=== PATIENT | female | born 1965 | race Caucasian/White ===

== ENCOUNTER → 2021-09-19 | Outpatient (CLI) | payer BC, OTHER ==
[~2021-09-19] MED LIST: EZET10TA21 PO
== END ==
LOC: M LABSMTC 10:16
PROVIDERS: ATTEND Anesthesiology
DX: Z01.812 Encounter for preprocedural laboratory examination (principal); Z20.822 Contact with and (suspected) exposure to COVID-19

== ENCOUNTER 2021-09-24 10:32 | Day surgery (SDC) | payer BC, OTHER ==
[~2021-09-24] VITALS: Ht 157.5 cm; Wt 69.9 kg
[~2021-09-24 10:32] MED LIST changes: +NS 1,000 ML IV ONE
--- OUTSIDE RECORDS SUMMARY | 2021-09-24 10:41 | CCD ---
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 eviewed Alzheimer's disease, ovarian cancer 11/18/2013 Sister 1 health status was reviewed HTN 11/18/2013 Review of Systems Review of Systems not supported for this document typeNo Review of Systems Recorded Mental Status Mental Status not supported for this document typeNo Mental Status Recorded Functional Status Functional Status not supported for this document typeNo Functional Status Recorded Physical Exam Physical Exam not supported for this document typeNo Physical Exam Recorded Immunizations Includes: Immunizations in patient's chart Vaccine Dose # Date Site Reaction(s) Status Source Influenza, seasonal, injectable 1 09/12/2014 Left Arm Complete (Administered) [facility] Influenza, seasonal, injectable 2 09/11/2016 Right Deltoid Complete (Administered) [facility] Influenza, seasonal, injectable 3 09/02/2018 Left Deltoid Complete (Administered) [facility] Influenza, seasonal, injectable 4 09/13/2019 Right Deltoid Complete (Administered) [facility] Influenza, seasonal, injectable 5 09/13/2020 Left Deltoid Complete (Administered) [facility] Influenza, seasonal, injectable 6 09/03/2021 Right Deltoid Complete (Administered) [facility] [place] COVID 1 03/01/2021 Complete (Reported) Pat ient Tdap (> 7 yrs) 1 02/26/2013 Complete (Reported) Pa tient Allergies Includes: Active, inactive, and resolved Allergies Substance Type Reaction Onset Date - Time Resolved Date - Ti ak Status surgical jacinto Allergy rash 11/18/2013 - 12:00AM Active Flonase Allergy ocular watering, rhinorrhea worsened 01/26/2014 - 12:00AM Active Encounters Includes: Encounters from 09/07/2020 through 09/07/2021 Encounter Provider Location Date Check-In Time Check-Out Time D iagnosis Flu Shot Adult Abdirahman Gómez MD [facility] kenna [facility] 09/03/2021 1:53PM 2:08PM [Patient Encounter] [facility] 08/02/202107/25 9:31AM 07/25/2021 11:59PM ANNUAL PE-followup exam/30 Emerita Salgado zaynab [facility] dictito [place] [facility] 07/25/2021 12:46PM 1:41PM Pure Hypercholes terolemia, Obesity, Routine History and Physical Adult (18 - 64 Yrs), Fatty Liver - Nonalcoholic, Gerd Flu Shot Adult Abdirahman Gómez MD [facility] kenna [facility] 09/13/2020 10:59AM 11:09AM Insurance Includes: Active Insurance Policies Plan Name Member ID Group # Subscriber Relationship Effective Da seema 1 - [place] [employer] [id number] Luke Tanner Jose Advance Directives Includes: Current Advance DirectivesNo Advance Directives Recorded Health Concerns Includes: Active Health ConcernsNo Active Health Concerns Recorded Goals Includes: Active GoalsNo Active Goals Recorded Interventions Includes: Interventions for active GoalsNo Interventions Recorded Evaluations & Outcomes Includes: Evaluations & Outcomes for active GoalsNo Outcomes Recorded
--- OUTSIDE RECORDS SUMMARY | 2021-09-24 10:42 | CCD ---
Author Author [facility] Address Unknown Phone Unavailable Care Team Providers Care It Engineer Name Role Phone MUHA, M DREW BAKERY MACHINE MECHANIC Unavailable Unavailable MUHA, M DREW BAKERY MACHINE MECHANIC Unavailable Unavailable MUHA, M DREW BAKERY MACHINE MECHANIC Unavailable Unavailable MUHA, M DREW BAKERY MACHINE MECHANIC Unavailable Unavailable MUHA, M DREW BAKERY MACHINE MECHANIC Unavailable Unavailable MUHA, M DREW BAKERY MACHINE MECHANIC Unavailable Unavailable MUHA, M DREW BAKERY MACHINE MECHANIC Unavailable Unavailable MUHA, M DREW BAKERY MACHINE MECHANIC Unavailable Unavailable MUHA, M DREW BAKERY MACHINE MECHANIC Unavailable Unavailable MUHA, M DREW BAKERY MACHINE MECHANIC Unavailable Unavailable MUHA, M DREW BAKERY MACHINE MECHANIC Unavailable Unavailable MUHA, M DREW BAKERY MACHINE MECHANIC Unavailable Unavailable MUHA, M DREW BAKERY MACHINE MECHANIC Unavailable Unavailable MUHA, M DREW BAKERY MACHINE MECHANIC Unavailable Unavailable MUHA, M DREW BAKERY MACHINE MECHANIC Unavailable Unavailable MUHA, M DREW BAKERY MACHINE MECHANIC Unavailable Unavailable MUHA, M DREW BAKERY MACHINE MECHANIC Unavailable Unavailable MUHA, M DREW BAKERY MACHINE MECHANIC Unavailable Unavailable MUHA, M DREW BAKERY MACHINE MECHANIC Unavailable Unavailable MUHA, M DREW BAKERY MACHINE MECHANIC Unavailable Unavailable MUHA, M DREW BAKERY MACHINE MECHANIC Unavailable Unavailable MUHA, M DREW BAKERY MACHINE MECHANIC Unavailable Unavailable MUHA, M DREW BAKERY MACHINE MECHANIC Unavailable Unavailable MUHA, M DREW BAKERY MACHINE MECHANIC Unavailable Unavailable MUHA, M DREW BAKERY MACHINE MECHANIC Unavailable Unavailable MUHA, M DREW BAKERY MACHINE MECHANIC Unavailable Unavailable MUHA, M DREW BAKERY MACHINE MECHANIC Unavailable Unavailable MUHA, M DREW BAKERY MACHINE MECHANIC Unavailable Unavailable MUHA, M DREW BAKERY MACHINE MECHANIC Unavailable Unavailable MUHA, M DREW BAKERY MACHINE MECHANIC Unavailable Unavailable MUHA, M DREW BAKERY MACHINE MECHANIC Unavailable Unavailable MUHA, M DREW BAKERY MACHINE MECHANIC Unavailable Unavailable MUHA, M DREW BAKERY MACHINE MECHANIC Unavailable Unavailable MUHA, M DREW BAKERY MACHINE MECHANIC Unavailable Unavailable MUHA, M DREW BAKERY MACHINE MECHANIC Unavailable Unavailable MUHA, M DREW BAKERY MACHINE MECHANIC Unavailable Unavailable MUHA, M DREW BAKERY MACHINE MECHANIC Unavailable Unavailable MUHA, M DREW BAKERY MACHINE MECHANIC Unavailable Unavailable MUHA, M DREW BAKERY MACHINE MECHANIC Unavailable Unavailable MUHA, M DERW BAKERY MACHINE MECHANIC Unavailable Unavailable MUHA, M DREW BAKERY MACHINE MECHANIC Unavailable Unavailable MUHA, M DREW BAKERY MACHINE MECHANIC Unavailable Unavailable MUHA, M DREW BAKERY MACHINE MECHANIC Unavailable Unavailable MUHA, M DREW BAKERY MACHINE MECHANIC Unavailable Unavailable MUHA, M DREW BAKERY MACHINE MECHANIC Unavailable Unavailable MUHA, M DREW BAKERY MACHINE MECHANIC Unavailable Unavailable MUHA, M DREW BAKERY MACHINE MECHANIC Unavailable Unavailable MUHA, M DREW BAKERY MACHINE MECHANIC Unavailable Unavailable MUHA, M DREW BAKERY MACHINE MECHANIC Unavailable Unavailable MUHA, M DREW BAKERY MACHINE MECHANIC Unavailable Unavailable MUHA, M DREW BAKERY MACHINE MECHANIC Unavailable Unavailable MUHA, M DREW BAKERY MACHINE MECHANIC Unavailable Unavailable MUHA, M DREW BAKERY MACHINE MECHANIC Unavailable Unavailable MUHA, M DREW BAKERY MACHINE MECHANIC Unavailable Unavailable Sy, D Nikki BAKERY MACHINE MECHANIC-C Unavailable Unavailable Sy, D Nikki BAKERY MACHINE MECHANIC-C Unavailable Unavailable Sy, D Nikki BAKERY MACHINE MECHANIC-C Unavailable Unavailable Sy, D Nikki BAKERY MACHINE MECHANIC-C Unavailable Unavailable Sy, D Nikki BAKERY MACHINE MECHANIC-C Unavailable Unavailable Sy, D Nikki BAKERY MACHINE MECHANIC-C Unavailable Unavailable Sy, D Nikki BAKERY MACHINE MECHANIC-C Unavailable Unavailable Bhavna Dunn MD Unavailable Unavailable Bhavna Dunn MD Unavailable Unavailable Bhavna Dunn MD Unavailable Unavailable Bhavna Dunn MD Unavailable Unavailable Bhavna Dunn MD Unavailable Unavailable Bhavna Dunn MD Unavailable Unavailable Bhavna Dunn MD Unavailable Unavailable Bhavna Dunn MD Unavailable Unavailable Bhavna Dunn MD Unavailable Unavailable Bhavna Dunn MD Unavailable Unavailable Bhavna Dunn MD Unavailable Unavailable Bhavna Dunn MD Unavailable Unavailable Bhavna Dunn MD Unavailable Unavailable Bhavna Dunn MD Unavailable Unavailable LyndaBhavna mazariegos MD Unavailable Unavailable LyndaBhavna mazariegos MD Unavailable Unavailable LyndaBhavna mazariegos MD Unavailable Unavailable LyndaBhavna mazariegos MD Unavailable Unavailable LyndaBhavna mazariegos MD Unavailable Unavailable LyndaBhavna mazariegos MD Unavailable Unavailable LyndaBhavna mazariegos MD Unavailable Unavailable LyndaBhavna mazariegos MD Unavailable Unavailable LyndaBhavna mazariegos MD Unavailable Unavailable LyndakerBhavna MD Unavailable Unavailable LyndaBhavna mazariegos MD Unavailable Unavailable LyndaBhavna mazariegos MD Unavailable Unavailable LyndaBhavna mazariegos MD Unavailable Unavailable LyndaBhavna mazariegos MD Unavailable Unavailable LyndaBhavna mazariegos MD Unavailable Unavailable LyndaBhavna mazariegos MD Unavailable Unavailable LyndaBhavna mazariegos MD Unavailable Unavailable LyndaBhavna mazariegos MD Unavailable Unavailable LyndaBhavna mazariegos MD Unavailable Unavailable LyndaBhavna mazariegos MD Unavailable Unavailable LyndaBhavna mazariegos MD Unavailable Unavailable LyndaBhavna mazariegos MD Unavailable Unavailable LyndaBhavna mazariegos MD Unavailable Unavailable LyndaBhavna mazariegos MD Unavailable Unavailable LyndaBhavna mazariegos MD Unavailable Unavailable LyndaBhavna mazariegos MD Unavailable Unavailable LynBhavna clark MD Unavailable Unavailable LyndaBhavna mazariegos MD Unavailable Unavailable LyndaBhavna mazariegos MD Unavailable Unavailable LyndaBhavna mazariegos MD Unavailable Unavailable LyndaBhavna mazariegos MD Unavailable Unavailable LynBahvna clark MD Unavailable Unavailable LynBhavna clark MD Unavailable Unavailable LynBhavna clark MD Unavailable Unavailable LynBhavna clark MD Unavailable Unavailable LyndaBhavna mazariegos MD Unavailable Unavailable LyndaBhavna mazariegos MD Unavailable Unavailable LynBhavna clark MD Unavailable Unavailable LyndaBhavna mazariegos MD Unavailable Unavailable LynBhavna clark MD Unavailable Unavailable LyndaBhavna mazariegos MD Unavailable Unavailable LyndaBhavna mazariegos MD Unavailable Unavailable LyndaBhavna mazariegos MD Unavailable Unavailable LyndaBhavna mazariegos MD Unavailable Unavailable LyndaBhavna mazariegos MD Unavailable Unavailable LyndaBhavna mazariegos MD Unavailable Unavailable LyndaBhavna mazariegos MD Unavailable Unavailable LyndaBhavna mazariegos MD Unavailable Unavailable LyndaBhavna mazariegos MD Unavailable Unavailable LyndaBhavna mazariegos MD Unavailable Unavailable LynBhavna clark MD Unavailable Unavailable LynBhavna clark MD Unavailable Unavailable LynBhavna clark MD Unavailable Unavailable Lynamber, Bhavna Gary MD Unavailable Unavailable LynBhavna clark MD Unavailable Unavailable LynBhavna clark MD Unavailable Unavailable LynBhavna clark MD Unavailable Unavailable LynBhavna clark MD Unavailable Unavailable LynBhavna clark MD Unavailable Unavailable LynBhavna clark MD Unavailable Unavailable LynBhavna clark MD Unavailable Unavailable LynBhavna clark MD Unavailable Unavailable LynBhavna clark MD Unavailable Unavailable LynBhavna clark MD Unavailable Unavailable LynBhavna clark MD Unavailable Unavailable LynBhavna clark MD Unavailable Unavailable LynBhavna clark MD Unavailable Unavailable LynBhavna clark MD Unavailable Unavailable LynBhavna clark MD Unavailable Unavailable LynBhavna clark MD Unavailable Unavailable LynBhavna clark MD Unavailable Unavailable LynBhavna clark MD Unavailable Unavailable LynBhavna clark MD Unavailable Unavailable LynBhavna clark MD Unavailable Unavailable LynBhavna clark MD Unavailable Unavailable LynBhavna clark MD Unavailable Unavailable Bhavna Dunn MD Unavailable Unavailable Bhavna Dunn MD Unavailable Unavailable Bhavna Dunn MD Unavailable Unavailable Bhavna Dunn MD Unavailable Unavailable Bhavna Dunn MD Unavailable Unavailable Bhavna Dunn MD Unavailable Unavailable Bhavna Dunn MD Unavailable Unavailable Bhavna Dunn MD Unavailable Unavailable MUHA, M DREW BAKERY MACHINE MECHANIC Unavailable Unavailable MUHA, M DREW BAKERY MACHINE MECHANIC Unavailable Unavailable MUHA, M DREW BAKERY MACHINE MECHANIC Unavailable Unavailable MUHA, M DREW BAKERY MACHINE MECHANIC Unavailable Unavailable MUHA, M DREW BAKERY MACHINE MECHANIC Unavailable Unavailable MUHA, M DREW BAKERY MACHINE MECHANIC Unavailable Unavailable MUHA, M DREW BAKERY MACHINE MECHANIC Unavailable Unavailable MUHA, M DREW BAKERY MACHINE MECHANIC Unavailable Unavailable MUHA, M DREW BAKERY MACHINE MECHANIC Unavailable Unavailable MUHA, M DREW BAKERY MACHINE MECHANIC Unavailable Unavailable MUHA, M DREW BAKERY MACHINE MECHANIC Unavailable Unavailable MUHA, M DREW BAKERY MACHINE MECHANIC Unavailable Unavailable MUHA, M DREW BAKERY MACHINE MECHANIC Unavailable Unavailable MUHA, M DREW BAKERY MACHINE MECHANIC Unavailable Unavailable MUHA, M DREW BAKERY MACHINE MECHANIC Unavailable Unavailable MUHA, M DREW BAKERY MACHINE MECHANIC Unavailable Unavailable MUHA, M DREW BAKERY MACHINE MECHANIC Unavailable Unavailable MUHA, M DREW BAKERY MACHINE MECHANIC Unavailable Unavailable MUHA, M DREW BAKERY MACHINE MECHANIC Unavailable Unavailable MUHA, M DREW BAKERY MACHINE MECHANIC Unavailable Unavailable MUHA, M DREW BAKERY MACHINE MECHANIC Unavailable Unavailable MUHA, M DREW BAKERY MACHINE MECHANIC Unavailable Unavailable MUHA, M DREW BAKERY MACHINE MECHANIC Unavailable Unavailable MUHA, M DREW BAKERY MACHINE MECHANIC Unavailable Unavailable MUHA, M DREW BAKERY MACHINE MECHANIC Unavailable Unavailable MUHA, M DREW BAKERY MACHINE MECHANIC Unavailable Unavailable MUHA, M DREW BAKERY MACHINE MECHANIC Unavailable Unavailable MUHA, M DREW BAKERY MACHINE MECHANIC Unavailable Unavailable MUHA, M DREW BAKERY MACHINE MECHANIC Unavailable Unavailable MUHA, M DREW BAKERY MACHINE MECHANIC Unavailable Unavailable MUHA, M DREW BAKERY MACHINE MECHANIC Unavailable Unavailable MUHA, M DREW BAKERY MACHINE MECHANIC Unavailable Unavailable MUHA, M DREW BAKERY MACHINE MECHANIC Unavailable Unavailable MUHA, M DREW BAKERY MACHINE MECHANIC Unavailable Unavailable MUHA, M DREW BAKERY MACHINE MECHANIC Unavailable Unavailable MUHA, M DREW BAKERY MACHINE MECHANIC Unavailable Unavailable MUHA, M RDEW BAKERY MACHINE MECHANIC Unavailable Unavailable MUHA, M DREW BAKERY MACHINE MECHANIC Unavailable Unavailable MUHA, M DREW BAKERY MACHINE MECHANIC Unavailable Unavailable MUHA, M DREW BAKERY MACHINE MECHANIC Unavailable Unavailable MUHA, M DREW BAKERY MACHINE MECHANIC Unavailable Unavailable MUHA, M DREW BAKERY MACHINE MECHANIC Unavailable Unavailable MUHA, M DREW BAKERY MACHINE MECHANIC Unavailable Unavailable MUHA, M DREW BAKERY MACHINE MECHANIC Unavailable Unavailable MUHA, M DREW BAKERY MACHINE MECHANIC Unavailable Unavailable MUHA, M DREW BAKERY MACHINE MECHANIC Unavailable Unavailable MUHA, M DREW BAKERY MACHINE MECHANIC Unavailable Unavailable MUHA, M DERW BAKERY MACHINE MECHANIC Unavailable Unavailable MUHA, M DREW BAKERY MACHINE MECHANIC Unavailable Unavailable MUHA, M DREW BAKERY MACHINE MECHANIC Unavailable Unavailable MUHA, M DREW BAKERY MACHINE MECHANIC Unavailable Unavailable MUHA, M DREW BAKERY MACHINE MECHANIC Unavailable Unavailable MUHA, M DREW BAKERY MACHINE MECHANIC Unavailable Unavailable MUHA, M DREW BAKERY MACHINE MECHANIC Unavailable Unavailable Ailyn Harris MD, FACS Unavailable Unavailable Ailyn Harris MD, FACS Unavailable Unavailable Ailyn Harris MD, FACS Unavailable Unavailable Ailyn Harris MD, FACS Unavailable Unavailable Ailyn Harris MD, FACS Unavailable Unavailable Ailyn Harris MD, FACS Unavailable Unavailable Ailyn Harris MD, FACS Unavailable Unavailable Ailyn Harris MD, FACS Unavailable Unavailable Ailyn Harris MD, FACS Unavailable Unavailable Ailyn Harris MD, FACS Unavailable Unavailable Ailyn Harris MD, FACS Unavailable Unavailable Ailyn Harris MD, FACS Unavailable Unavailable Cordova Ling, Ailyn Sánchez MD, FACS Unavailable Unavailable Cordova Ling, Ailyn Sánchez MD, FACS Unavailable Unavailable Cordova Ling, Ailyn Sánchez MD, FACS Unavailable Unavailable Cordova Ling, Ailyn Sánchez MD, FACS Unavailable Unavailable Cordova Ling, Ailyn Sánchez MD, FACS Unavailable Unavailable Cordova Ling, Ailyn Sánchez MD, FACS Unavailable Unavailable Cordova Ling, Ailyn Sánchez MD, FACS Unavailable Unavailable Cordova Ling, Ailyn Sánchez MD, FACS Unavailable Unavailable Cordova Ling, Ailyn Sánchez MD, FACS Unavailable Unavailable Cordova Ling, Ailyn Sánchez MD, FACS Unavailable Unavailable Cordova Ling, Ailyn Sánchez MD, FACS Unavailable Unavailable Cordova Ling, Ailyn Sánchez MD, FACS Unavailable Unavailable Cordova Ling, Ailyn Sánchez MD, FACS Unavailable Unavailable Cordova Ling, Ailyn Sánchez MD, FACS Unavailable Unavailable Cordova Ling, Ailyn Sánchez MD, FACS Unavailable Unavailable Cordova Ling, Ailyn Sánchez MD, FACS Unavailable Unavailable Cordova Ling, Ailyn Sánchez MD, FACS Unavailable Unavailable Cordova Ling, Ailyn Sánchez MD, FACS Unavailable Unavailable Cordova Ling, Ailyn Sánchez MD, FACS Unavailable Unavailable Cordova Ling, Ailyn Sánchez MD, FACS Unavailable Unavailable Cordova Ling, Ailyn Sánchez MD, FACS Unavailable Unavailable Cordova Ling, Ailyn Sánchez MD, FACS Unavailable Unavailable Cordova Ling, Ailyn Sánchez MD, FACS Unavailable Unavailable Cordova Ling, Ailyn Sánchez MD, FACS Unavailable Unavailable Cordova Ling, Ailyn Sánchez MD, FACS Unavailable Unavailable Ocrdova Ling, Ailyn Sánchez MD, FACS Unavailable Unavailable Cordova Ling, Ailyn Sánchez MD, FACS Unavailable Unavailable KEVIN, A JUSTIN DO Unavailable Unavailable KEVIN, A JUSTIN DO Unavailable Unavailable KEVIN, A JUSTIN DO Unavailable Unavailable KEVIN, A JUSTIN DO Unavailable Unavailable KEVIN, A JUSTIN DO Unavailable Unavailable KEVIN, A JUSTIN DO Unavailable Unavailable KEVIN, A JUSTIN DO Unavailable Unavailable KEVIN, A JUSTIN DO Unavailable Unavailable KEVIN, A JUSTIN DO Unavailable Unavailable KEVIN, A JUSTIN DO Unavailable Unavailable KEVIN, A JUSTIN DO Unavailable Unavailable KEVIN, A JUSTIN DO Unavailable Unavailable KEVIN, A JUSTIN DO Unavailable Unavailable KEVIN, A JUSTIN DO Unavailable Unavailable KEVIN, A JUSTIN DO Unavailable Unavailable KEVIN, A JUSTIN DO Unavailable Unavailable KEVIN, A JUSTIN DO Unavailable Unavailable KEVIN, A JUSTIN DO Unavailable Unavailable KEVIN, A JUSTIN DO Unavailable Unavailable KEVIN, A JUSTIN DO Unavailable Unavailable KEVIN, A JUSTIN DO Unavailable Unavailable KEVIN, A JUSTIN DO Unavailable Unavailable Patrick, [place] Hillary Unavailable Unavailable Patrick, [place] Hillary Unavailable Unavailable Patrick, [place] Hillary Unavailable Unavailable Patrick, [place] Hillary Unavailable Unavailable Patrick, [place] Hillary Unavailable Unavailable Patrick, [place] Hillary Unavailable Unavailable Patrick, [place] Hillary Unavailable Unavailable Patrick, [place] Hillary Unavailable Unavailable Patrick, [place] Hillary Unavailable Unavailable Patrick, [place] Hillary Unavailable Unavailable Patrick, [place] Hillary Unavailable Unavailable Patrick, [place] Hillary Unavailable Unavailable Patrick, [place] Hillary Unavailable Unavailable Re-disclosure Warning The records that you are about to access may contain information from federally-assisted alcohol or drug abuse programs. If such information is present, then the following federally mandated warning applies: This information has been disclosed to you from records protected by federal confidentiality rules (42 CFR part 2). The federal rules prohibit you from making any further disclosure of this information unless further disclosure is expressly permitted by the written consent of the person to whom it pertains or as otherwise permitted by 42 CFR part 2. A general authorization for the release of medical or other information is NOT sufficient for this purpose. The Federal rules restrict any use of the information to criminally investigate or prosecute any alcohol or drug abuse patient.The records that you are about to access may contain highly sensitive health information, the redisclosure of which is protected by Article 27-F of the [facility] Public Health law. If you continue you may have access to information: Regarding HIV / AIDS; Provided by facilities licensed or operated by the [facility] Office of Mental Health; or Provided by the [facility] Office for People With Developmental Disabilities. If such information is present, then the following [facility] mandated warning applies: This information has been disclosed to you from confidential records which are protected by state law. State law prohibits you from making any further disclosure of this information without the specific written consent of the person to whom it pertains, or as otherwise permitted by law. Any unauthorized further disclosure in violation of state law may result in a fine or detention sentence or both. A general authorization for the release of medical or other information is NOT sufficient authorization for further disc losure. Allergies and Adverse Reactions Type Description Substance Reaction Status Data Source(s ) Allergy to substance No Known Allergies No known allergies (situation ) [place] (Gonzalo Ling MD [facility]) Allergy to substance No Known Allergies No known allergies (situation ) [place] (Gonzalo Ling MD [facility]) Allergy to substance No Known Allergies No known allergies (situation ) [place] (Gonzalo Ling MD [facility]) Allergy to substance No Known Allergies No known allergies (situation ) [place] (Gonzalo Ling MD [facility]) Allergy to substance Allergy to substance Allergy to substance [place] ([facility]) Family History Family Member Name Family Member Gender Family Member Status Date o f Status Description Data Source(s) Unknown Unknown Problem MEDENT ([facility]) Unknown Unknown Problem MEDENT ([facility]) Unknown Unknown Problem MEDENT ([facility]) Unknown Female Problem [facility]ENT ([facility]) Unknown Female Problem MEDENT ([facility]) Encounters Encounter Providers Location Date Indications Data Source(s ) <td ID="encounterTypeDescriptionID0">Flu Shot Adult</td><td>Abdirahman Dunn MD</td><td>[facility], [facility]</td><td>09/03/2021</td><td>1:53PM</td><td>2:08PM</td><td></td>Outpatient Attender: Abdirahman Dunn MD [facility], [facility] 09/03/2021 01:53:00 PM EDT - 09/03/2021 02:08:35 PM EDT [place] ([facility]) Outpatient Attender: DREW MCMILLAN 08/02/2021 07:02:[address] [facility] E78.00 Outpatient<td ID="encounterTypeDescripti onID2">ANNUAL PE-followup exam</td><td>Drew TAMEZP-</td><td>[facility]</td><td>07/25/2021</td><td>12:46PM</td><td>1:41PM</td><td><content ID="encounterDiagnosisID2-0">Pure Hypercholesterolemia</content>, <content ID="encounterDiagnosisID2-1">Obesity</content>, <content ID="encounterDiagnosisID2-2">Routine History and Physical Adult (18 - 64 Yrs)</content>, <content ID="encounterDiagnosisID2-3">Fatty Liver - Nonalcoholic</content>, <content ID="encounterDiagnosisID2-4">Gerd</content></td> Attender: DREW SARAH DEYANIRA [facility], [facility] 07/25/2021 12:46:00 PM EDT - 07/25/2021 01:41:00 PM EDT Routine History and Physical Adult (18 - 64 Yrs)Routine History and Physical Adult (18 - 64 Yrs)Fatty Liver - NonalcoholicFatty Liver - NonalcoholicObesityObesityGerdGerdPure HypercholesterolemiaPure Hypercholesterolemia [place] ([facility]) Routine History and Physical Adult (18 - 64 Yrs) Routine History and Physical Adult (18 - 64 Yrs) Fatty Liver - Nonalcoholic Fatty Liver - Nonalcoholic Obesity Obesity Gerd Gerd Pure Hypercholesterolemia Pure Hypercholesterolemia <td ID="encounterTypeDescriptionID1">[Pa tient Encounter]</td><td>Drew Sarah [facility]-</td><td></td><td>08/02/2021</td><td>07/25/2021 9:31AM</td><td>07/25/2021 11:59PM</td><td></td>Outpatient Attender: DREW [place] MCMILLAN 0 07/25/2021 09:31:00 AM EDT - 07/25/2021 11:59:00 PM EDT [place] ([facility]) <td ID="encounterTypeDescriptionID0">IOP CHECK WITH OCT DISC</td><td>Justin Scott DO</td><td>Gonzalo Aguilar MD [facility]</td><td>06/11/2021</td><td>2:36PM</td><td>3:14PM</td><td><content ID="encounterDiagnosisID0-0">Borderline Glaucoma Ocular Hypertension</content></td>Outpatient Attender: JUSTIN Shay MD [facility] 06/11/2021 02:36:00 PM EDT - 06/11/2021 03:14:00 PM ED T Borderline Glaucoma Ocular HypertensionBorderline Glaucoma Ocular Hypertension [place] (Gonzalo Ling MD [facility]) 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 Attender: Hillary H[facility]MON[facility] - [facility] Medical 02/27/2021 12:00:00 AM EDT YANA ([facility]) <td ID="encounterTypeDescriptionID1">IOP CHECK</td><td>Gonzalo Aguilar MD, FACS</td><td>Gonzalo Aguilar MD [facility]</td><td>01/30/2021</td><td>1:59PM</td><td>2:22PM</td><td><content ID="encounterDiagnosisID1-0">Borderline Glaucoma Ocular Hypertension</content></td>Outpatient Attender: Gonzalo Lnig MD, FACS Gonzalo Aguilar MD [facility] 01/30/2021 01:59:00 PM EST - 01/30/2021 02:22:00 PM ES T Borderline Glaucoma Ocular HypertensionBorderline Glaucoma Ocular HypertensionBorderline Glaucoma Ocular Hypertension [place] (Gonzalo Ling MD [facility]) 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 E78.00 <td ID="encounterTypeDescriptionID2">IOP CHECK</td><td>Gonzalo Aguilar MD, FACS</td><td>Gonzalo Aguilar MD [facility]</td><td>08/01/2020</td><td>2:54PM</td><td>3:28PM</td><td><content ID="encounterDiagnosisID2-0">Borderline Glaucoma Ocular Hypertension</content></td>Outpatient Attender: Gonzalo Ling MD, FACS Gonzalo Aguilar MD [facility] 08/01/2020 02:54:00 PM EDT - 08/01/2020 03:28:00 PM ED T Borderline Glaucoma Ocular HypertensionBorderline Glaucoma Ocular HypertensionBorderline Glaucoma Ocular HypertensionBorderline Glaucoma Ocular Hypertension [place] (Gonzalo Ling MD [facility]) 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 This is one of two codes replacing CVX 15, which is being retired. 09/03/2021 02:07:00 PM EDT completed <td ID="Uozgzlhuxkhwj-Dfjdbjlnrsx-TB1">Influenza, seasonal, injectable</td><td ID="ImmunizationDose-5">6</td><td>09/03/2021</td><td ID="Fwhmauvhshuwz-AtimePjcz-GE1">Right Deltoid</td><td></td><td ID="Bunpvfajysjyl-Jtvogp-EF8">Complete (Administered)</td><td>[facility]</td><td ID="Pexhlcwdvgkei-Zxkos-Aewb-Comment-ID5"></td> [place] ([facility]) [place] COVID 03/01/2021 01:16:00 PM EDT completed <td ID="Daakjxwphhkva-Jvasugyvqcb-YV9">[place] COVID</td><td ID="ImmunizationDose- 6">1</td><td>03/01/2021</td><td ID="Koycjxglebovb-JrplwKmsa-EF9"></td><td></td> <td ID="Fnntqoyowwgjj-Pzxsmg-OF7">Complete (Reported)</td><td>Patient</td><td ID="Seajxtdbzzghr-Rbhyy-Lbut-Comment-ID6"></td> [place] ([facility]) COVID-19 vaccine, vector-nr, rS-Ad26, PF, 0.5 mL 03/01/2021 10:44:31 AM EDT completed .5 mL [place] ([facility]) COVID-19 VACCINE [place] 03/01/2021 12:00:00 AM EDT completed [employer] Vaccine Series Complete: YESThis Data wa s Submitted to [facility] Via [employer]. IIV3. This is one of two codes replacing CVX 15, which is being retired. 09/13/2020 11:19:00 AM EDT completed <td ID="Apbxzlczemrwo-Dvrcqginvxn-HR1">Influenza, seasonal, injectable</td><td ID="ImmunizationDose-4">5</td><td>09/13/2020</td><td ID="Dwxkaulbynwra-JvdpoAyaq-DR3">Left Deltoid</td><td></td><td ID="Gskthzqexaspi-Ulblek-WL8">Complete (Administered)</td><td>[facility]</td><td ID="Ijlnsnediryih-Muamo-Wrij-Comment-ID4"></td> [place] ([facility]) Medications Medication Brand Name Start Date Product Form Dose Route Admi nistrative Instructions Pharmacy Instructions Status Indications Reaction Description Data Source(s) ezetimibe 10 MG Oral Tablet Ezetimibe 10 MG Oral Table t Ezetimibe 10 MG Oral Tablet 08/23/2021 12:00:00 AM EDT 1 active ezetimibe 10 MG Oral Tablet [place] ([facility]) Fluticasone propionate 0.5 MG/ML Topical Cream Fluticasone P ropionate 06/07/2021 12:00:00 AM EDT active [place] ([facility]) ezetimibe 10 MG Oral Tablet Ezetimibe 10 MG Oral Table t Ezetimibe 10 MG Oral Tablet 02/23/2021 12:00:00 AM EDT 1 aborted ezetimibe 10 MG Oral Tablet [place] ([facility]) latanoprost 0.05 MG/ML Ophthalmic Soluti on Latanoprost 0.005% Ophthalmic Solution Latanoprost 0.005% Ophthalmic Solution 01/30/2021 12:00:00 AM EST 1 active latanoprost 0.05 MG/ ML Ophthalmic Solution [place] (Gonzalo Ling MD [facility]) bimatoprost 0.1 MG/ML Ophthalmic Solutio n [Lumigan] Lumigan 0.01% Ophthalmic Solution Lumigan 0.01% Ophthalmic Solution 01/30/2021 12:00:00 AM EST 1 aborted bimatoprost 0.1 MG/ML Ophthalmic Solution [Lumigan] [place] (Gonzalo Ling MD [facility]) ezetimibe 10 MG Oral Tablet [Zetia] Zetia 10 MG Oral T ablet Zetia 10 MG Oral Tablet 08/01/2020 12:00:00 AM EDT 1 active ezetimibe 10 MG Oral Tablet [Zetia] [place] (Gonzalo Ling MD [facility]) valacyclovir 1000 MG Oral Tablet [Valtrex] Valtrex 1 G M Oral Tablet Valtrex 1 GM Oral Tablet 07/24/2020 12:00:00 AM EDT 2 compl eted valacyclovir 1000 MG Oral Tablet [Valtrex] [place] ([facility]) ezetimibe 10 MG Oral Tablet [Zetia] Zetia 10 MG Oral T ablet Zetia 10 MG Oral Tablet 07/24/2020 12:00:00 AM EDT 1 aborted ezetimibe 10 MG Oral Tablet [Zetia] [place] ([facility]) bimatoprost 0.1 MG/ML Ophthalmic Solutio n [Lumigan] Lumigan 0.01% Ophthalmic Solution Lumigan 0.01% Ophthalmic Solution 01/17/2020 12:00:00 AM EST 1 aborted bimatoprost 0.1 MG/ML Ophthalmic Solution [Lumigan] [place] (Gonzalo Ling MD [facility]) [place] Choice Glucose Control High In Vitro Liquid Zoran alondra Choice Glucose Control High In Vitro Liquid 05/08/2018 12:00:00 AM EDT 1 aborted [place] Choice Glucose Control [place] (Gonzalo Ling MD [facility]) Insurance Providers Payer name Policy type / Coverage type Policy ID Covered green party ID Covered green party's relationship to manning Policy Manning Plan Information [place] Plan F [id number] SPOUSE [id number] BCBS EMPIRE MELISSA DIV [id number] United[employer] Other 0 [id number] Family Dependent Tanner Luke 0 [employer] Other 0 [id number] Family Dependent Tanner Luke 0 [facility] [id number] [facility] Employees ([place]) - [employer] Other 0 [id number] Family Dependent Tanner Luke 0 [facility] [employer] ([place]) - [employer] Other 0 [id number] Family Dependent Tanner Luke 0 [facility] ([place]) - [employer] Other 0 [id number] Family Dependent Tanner Luke 0 EMPIRE ([facility]) O [id number] P [id number] [employer] Other 0 [id number] Family Dependent Tanner Luke 0 [facility] [employer] ([place]) - [employer] Other 0 [id number] Family Dependent Tanner Luke 0 [employer] Other 0 [id number] Family Dependent Tanner Luke 0 [facility] Employees ([place]) - [employer] Other 0 [id number] Family Dependent Tanner Luke 0 [facility] Employees ([place]) - [employer] Other 0 [id number] Family Dependent Tanner Luke 0 [facility] Employees ([place]) - [employer] Other 0 [id number] Family Dependent Tanner Luke 0 [employer] Other 0 [id number] Family Dependent Tanner Luke 0 [place] Plan F [id number] SPOUSE [id number] [employer] Other 0 [id number] Family Dependent Tanner Luke 0 ANSI-Commercial [id number] [employer] Other 0 [id number] Family Dependent Tanner Luke 0 [employer] Other 0 [id number] Family Dependent Tanner Luke 0 [employer] Other 0 [id number] Family Dependent Tanner Espinoza 0 [employer] Other 0 [id number] Family Dependent Tanner Espinoza 0 [employer] Other 0 [id number] Family Dependent Tanner Espinoza 0 [employer] Other 0 [id number] Family Dependent Tanner Espinoza 0 [employer] Other 0 [id number] Family Dependent Tanner Espinoza 0 [facility] Health Maintenance Organization ([facility] [id number] Family Dependent [facility] [place] Health Maintenance Organization (O) [address] Self [facility] [id number] Problems, Conditions, and Diagnoses Code Display Name Description Problem Type Effective Dates Data Source(s) Z90.710 458999900 Acquired absence of uterus Problem 0 12:00:00 AM EST eCW1 ([facility]) Surgeries/Procedures Procedure Description Date Indications Data Source(s) FLUZONE/ multi-dose ( 6mos -older) FLUZONE/ multi-dose ( 6mo s -older) 09/03/2021 12:00:00 AM EDT [place] ([facility] IMADM PRQ ID SUBQ/IM NJXS 1 VACCINE ADMINISTRATION 1-IMMUNIZ ATION(adult) 09/03/2021 12:00:00 AM EDT [place] ([facility]) Shave Biopsy Of Skin, Single Lesion 06/07/2021 12:00:0 0 AM EDT [place] ([facility]) OFFICE OUTPATIENT VISIT 25 MINUTES 06/07/2021 12:00:00 AM EDT [place] ([facility]) Intermediate Eye Exam Established Patient Intermediate Eye Exam Established Patient 01/30/2021 12:00:00 AM EST [place] (Jeff jt Ling MD [facility]) EXCISION MAL LESION TRUNK/ARM/LEG 2.1-3.0 CM/> 021 12:00:00 AM EST [place] ([facility]) REPAIR INTERMEDIATE S/A/T/E 2.5 CM/< 01/05/2021 12:00: 00 AM EST [place] ([facility]) FLUZONE/ multi-dose ( 6mos -older) FLUZONE/ multi-dose ( 6mo s -older) 09/13/2020 12:00:00 AM EDT [place] ([facility]) IMADM PRQ ID SUBQ/IM NJXS 1 VACCINE ADMINISTRATION 1-IMMUNIZ ATION(adult) 09/13/2020 12:00:00 AM EDT [place] ([facility]) Intermediate Eye Exam Established Patient Intermediate Eye Exam Established Patient 08/01/2020 12:00:00 AM EDT [place] (Jeff id A Tasha Ling MD [facility]) Intermediate Eye Exam Established Patient Intermediate Eye Exam Established Patient 08/01/2020 12:00:00 AM EDT [place] (Jeff id A Tasha Ling MD [facility]) Results ID Date Data Source [id number] 09/19/2021 10:30:00 AM EDT [facility] Name Value Range Interpretation Code Description Data Karla rce(s) Supporting Document(s) SARS-CoV-2 (COVID-19) RNA [Presence] in Respiratory specimen by CIRA with probe detection Not Detected [facility] This lab was ordered by [facility] and reported by [employer]. ID Date Data Source [id number] 08/02/2021 07:55:[address] [facility] Name Value Range Interpretation Code Description Data Karla rce(s) Supporting Document(s) Urea nitrogen [Mass/volume] in Serum or Plasma 15 mg/dL 9-[address] [facility] Sodium [Moles/volume] in Serum or Plasma 141 mmol/L 132-146 [facility] Potassium [Moles/volume] in Serum or Plasma 4.1 mmol/L 3.5-5.5 [facility] Chloride [Moles/volume] in Serum or Plasma 110 mmol/L 99-[address] [facility] Carbon dioxide, total [Moles/volume] in Serum or Plasma 26 mmol/L 20 -[address] [facility] Anion gap in Serum or Plasma 9 mmol/L 8-16 [facility] Glucose [Mass/volume] in Serum or Plasma 100 mg/dL 74-106 [facility] Creatinine 0.7 mg/dL 0.5-1.1 [facility] Glomerular filtration rate/1.73 sq M.pre dicted [Volume Rate/Area] in Serum or Plasma Greater Than [address] [facility] Alanine aminotransferase [Enzymatic acti vity/volume] in Serum or Plasma by With P-5'-P 75 U/L 10-49 Above high normal [facility] Aspartate aminotransferase [Enzymatic ac tivity/volume] in Serum or Plasma by With P-5'-P 25 U/L 0-33 [facility] Alkaline phosphatase [Enzymatic activity/volume] in Serum or Plasma 77 U/L 45-[address] [facility] Calcium [Mass/volume] in Serum or Plasma 9.9 mg/dL 8.5-10.[address] [facility] Bilirubin.total [Mass/volume] in Serum or Plasma 0.5 mg/dL 0.3-1.[address] [facility] Albumin [Mass/volume] in Serum or Plasma by Bromocresol purple (BCP) dye binding method 3.7 g/dL 3.2-4.[address] [facility] ital Protein [Mass/volume] in Serum or Plasma 7.1 g/dL 5.7-8.2 [facility] ID Date Data Source [id number] 08/02/2021 07:57:[address] [facility] Name Value Range Interpretation Code Description Data Karla rce(s) Supporting Document(s) Leukocytes [#/volume] in Blood by Automated count 7.5 10*3/uL 4.45-10 .71 [facility] Erythrocytes [#/volume] in Blood by Automated count 5.28 10*6/uL 4.20 -5.40 [facility] Hemoglobin [Moles/volume] in Blood 15.4 g/dL 10.7-15.4 [facility] Hematocrit [Volume Fraction] of Blood by Automated count 45.7 % 3 7-[address] [facility] Erythrocyte mean corpuscular volume [Ent itic volume] in Cord blood by Automated count 87 fL 80-[address] [facility] ital Erythrocyte mean corpuscular hemoglobin [Entitic mass] by Au tomated count 29 pg 27-[address] [facility] Erythrocyte mean corpuscular hemoglobin concentration [Mass/volume] in Cord blood 34 g/dL 33-[address] [facility] ital Erythrocyte distribution width [Entitic volume] by Automated count 13 % 11-[address] [facility] Platelets [#/volume] in Blood by Automated count 261 10*3/uL 130-[address] [facility] Platelet mean volume [Entitic volume] in Blood 10.1 fL 9.1-13.[address] [facility] Neutrophils/100 leukocytes in Blood by Automated count 55.0 % 41- [address] [facility] Neutrophils [#/volume] in Blood by Automated count 4.1 U 1.7-7.[address] [facility] Lymphocytes/100 leukocytes in Blood by Automated count 34.4 % 14- [address] [facility] Lymphocytes [#/volume] in Blood by Automated count 2.6 U 0.6-4.[address] [facility] Monocytes/100 leukocytes in Blood by Automated count 6.0 % 4-[address] [facility] Monocytes [#/volume] in Blood by Automated count 0.5 U 0.2-1.[address] [facility] Eosinophils/100 leukocytes in Blood by Automated count 2.7 % 0-[address] [facility] Eosinophils [#/volume] in Blood by Automated count 0.2 U 0.0-0.[address] [facility] Basophils/100 leukocytes in Blood by Automated count 1.2 % 0.4-[address] [facility] Basophils [#/volume] in Blood by Automated count 0.1 U 0.0-0.[address] [facility] Immature granulocytes [Presence] in Blood by Automated count 0-[address] [facility] Immature granulocytes [#/volume] in Blood by Automated count 0.1 U 0-0.[address] [facility] Cells counted [#] 100 [facility] Neutrophils [#/volume] in Blood by Manual count 54 % 41-[address] [facility] Lymphocytes [#/volume] in Blood by Manual count 36 % 14-[address] [facility] Monocytes [#/volume] in Blood by Manual count 8 % 4-[address] [facility] Eosinophils [#/volume] in Blood by Manual count 2 % 0-[address] [facility] Platelets [#/volume] in Blood by Estimate APPEARS NORMAL NORMAL [facility] Morphology [Interpretation] in Blood Narrative APPEARS NORMAL NORMAL [facility] ID Date Data Source [id number] 08/02/2021 07:55:[address] [facility] Name Value Range Interpretation Code Description Data Karla rce(s) Supporting Document(s) Triglycerides 312 mg/dL 0-150 Above high normal [facility] Cholesterol 241 mg/dL 120-200 Above high normal [facility] HDL Cholesterol 45 mg/dL [facility] HDL Less than 40 mg/dL: Major risk for CHDHDL Greater than 59 mg/dL: Low risk for CHD LDL Cholesterol, Calc 134 mg/dL 0-[address] [facility] ID Date Data Source [id number] 08/02/2021 07:09:00 AM EDT [place] ([facility]) Name Value Range Interpretation Code Description Data Karla rce(s) Supporting Document(s) Reported Physicians See Note Reported Physici ans [place] ([facility]) Note: Reported Physicians:Ordering: Drew SarahAttending: Drew Sarah ID Date Data Source [id number] 08/02/2021 07:09:00 AM EDT [place] ([facility]) Name Value Range Interpretation Code Description Data Karla rce(s) Supporting Document(s) Erythrocyte mean corpuscular volume [Ent itic volume] in Cord blood by Automated count 87 FemtoLiter_[SI_Volume_Units] Normal MCV BldCo Auto [place] ([facility]) Note: Responsible Observer: MCV MCV 100 .0600 (B) Erythrocyte distribution width [Entitic volume] by Automated cou nt 13 percent Normal RDW RBC Auto [place] ([facility]) Note: Responsible Observer: RDW RDW 100 .0900 (B) Morphology [Interpretation] in Blood Narrative APPEARS NORMAL Morphology Bld-Imp [place] ([facility]) Note: Responsible Observer: RBC MORPH RB C MORPHOLOGY 100.3800 (A) Platelet mean volume [Entitic volume] in Blood 10.1 Fe mtoLiter_[SI_Volume_Units] Normal PMV Bld [place] ([facility] Note: Responsible Observer: MPV MPV 100 .1100 (B) Hematocrit [Volume Fraction] of Blood by Automated count 45.7 perce nt Normal Hct VFr Bld Auto [place] ([facility]) Note: Responsible Observer: HEMATOCRIT H EMATOCRIT 100.0500 (B) Immature granulocytes [Presence] in Blood by Automated count See No te Normal Imm Granulocytes Bld Ql Auto [place] ([facility]) Note: [id number] Ob seismic observer: IG% IG% 100.1375 (B) Erythrocyte mean corpuscular hemoglobin concentration [Mass/volume] in Cord blood 34 GramsPerDeciLiter_[Mass_Concentration_Units] Normal MCHC BldCo-mCnc [place] ([facility]) Note: Responsible Observer: MCHC MCHC 1 00.0800 (B) Hemoglobin [Moles/volume] in Blood 15.4 GramsPerDeciLiter_[Mass_Concentration_Units] Normal Hgb Bld-sCnc [place] ([facility]) Note: Responsible Observer: HGB HEMOGLOB IN 100.0400 (B) Immature granulocytes [#/volume] in Blood by Automated count 0.1 Un it Imm Granulocytes # Bld Auto [place] ([facility]) Note: Responsible Observer: IG# IG# 100 .1400 (B) Monocytes/100 leukocytes in Blood by Automated count 6.0 percent Normal Monocytes/leuk NFr Bld Auto [place] ([facility]) Note: Responsible Observer: MONO % MONO % 100.1225 (B) Platelets [#/volume] in Blood by Estimate APPEARS NORMAL Platelet # Bld Est [place] ([facility]) Note: Responsible Observer: PLT EST PLT ESTIMATE 100.3600 (A) Leukocytes [#/volume] in Blood by Automated count 7.5 ThousandsPerMicroLiter_[Number_Concentration_Units] Normal WBC # Bld Auto [place] ([facility]) Note: Responsible Observer: WBC WHITE BL OOD COUNT 100.0100 (E) Cells counted [#] 100 Cells counted [place] ([facility]) Note: Responsible Observer: TOTAL CELLS TOTAL CELLS COUNTED 100.2105 (A) Eosinophils [#/volume] in Blood by Manual count 2 percent Eosinophil # Bld Manual [place] ([facility]) Note: Responsible Observer: EOSINOPHIL E OSINOPHIL 100.2600 (A) Eosinophils [#/volume] in Blood by Automated count 0.2 Unit Normal Eosinophil # Bld Auto [place] ([facility]) Note: Responsible Observer: EOS # EOS# 100.1300 (D) Basophils/100 leukocytes in Blood by Automated count 1.2 percent Normal Basophils/leuk NFr Bld Auto [place] ([facility]) Note: Responsible Observer: BASO % BASO % 100.1325 (B) Basophils [#/volume] in Blood by Automated count 0.1 Unit Normal Basophils # Bld Auto [place] ([facility]) Note: Responsible Observer: BASO # BASO# 100.1350 (B) Lymphocytes [#/volume] in Blood by Manual count 36 percent Lymphocytes # Bld Manual [place] ([facility]) Note: Responsible Observer: LYMPHOCYTES LYMPHOCYTES 100.2400 (A) Eosinophils/100 leukocytes in Blood by Automated count 2.7 percent Normal Eosinophil/leuk NFr Bld Auto [place] ([facility]) Note: Responsible Observer: EOS % EOS % 100.1275 (B) Lymphocytes [#/volume] in Blood by Automated count 2.6 Unit Normal Lymphocytes # Bld Auto [place] ([facility]) Note: Responsible Observer: LYMPH # LYMP H# 100.1200 (B) Monocytes [#/volume] in Blood by Automated count 0.5 Unit Normal Monocytes # Bld Auto [place] ([facility]) Note: Responsible Observer: MONO # MONO# 100.1250 (C) Neutrophils [#/volume] in Blood by Automated count 4.1 Unit Normal Neutrophils # Bld Auto [place] ([facility]) Note: Responsible Observer: NEUT# NEUT# 100.1150 (B) Monocytes [#/volume] in Blood by Manual count 8 percent Monocytes # Bld Manual [place] ([facility]) Note: Responsible Observer: MONOCYTE MON OCYTE 100.2500 (A) Lymphocytes/100 leukocytes in Blood by Automated count 34.4 percent Normal Lymphocytes/leuk NFr Bld Auto [place] ([facility]) Note: Responsible Observer: LYMPH % LYMP H % 100.1175 (B) Erythrocyte mean corpuscular hemoglobin [Entitic mass] by Automated count 29 PicoGram_[SI_Mass_Units] Normal MCH RBC Qn Auto [place] ([facility]) Note: Responsible Observer: MCH MCH 100 .0700 (B) Platelets [#/volume] in Blood by Automated count 261 ThousandsPerMicroLiter_[Number_Concentration_Units] Normal Platelet # Bld Auto [place] ([facility]) Note: Responsible Observer: PLATELET COU NT PLATELET COUNT 100.1000 (D) Neutrophils [#/volume] in Blood by Manual count 54 percent Neutrophils # Bld Manual [place] ([facility]) Note: Responsible Observer: NEUTROPHILS NEUTROPHILS 100.2200 (A) Neutrophils/100 leukocytes in Blood by Automated count 55.0 percent Normal Neutrophils/leuk NFr Bld Auto [place] ([facility]) Note: Responsible Observer: NEUT% NEUT% 100.1125 (B) Erythrocytes [#/volume] in Blood by Automated count 5. 28 MillionsPerMicroLiter_[Number_Concentration_Units] Normal RBC # d Auto [place] ([facility]) Note: Responsible Observer: RBC Red Bloo d Count 100.0300 (B) ID Date Data Source [id number] 08/02/2021 07:09:00 AM EDT [place] ([facility]) Name Value Range Interpretation Code Description Data Karla rce(s) Supporting Document(s) Calcium [Mass/volume] in Serum or Plasma 9.9 MilliGramsPerDeciLiter_[Mass_Concentration_Units] Normal Calcium [facility] ([facility]) Note: Responsible Observer: Calcium Calc ium 400.2500 (G) Alanine aminotransferase [Enzymatic acti vity/volume] in Serum or Plasma by With P-5'-P 75 enzyme_unit_per_liter Above high normal ALT [facility] w P-5'-P-cCnc [place] ([facility]) Note: Responsible Observer: SGPT/ALT SGP T/ALT 400.1750 (G) Bilirubin.total [Mass/volume] in Serum or Plasma 0.5 MilliGramsPerDeciLiter_[Mass_Concentration_Units] Normal Bilirub [facility] ([facility]) Note: Responsible Observer: T GREGORIO Total Bilirubin 400.2600 (G) Carbon dioxide, total [Moles/volume] in Serum or Plasm a 26 MilliMolesPerLiter_[Substance_Concentration_Units] Normal CO2 [facility] ([facility]) Note: Responsible Observer: CO2 Carbon D ioxide 400.1400 (G) Chloride [Moles/volume] in Serum or Plasma 110 MilliMolesPerLiter_[Substance_Concentration_Units] Above hig h normal Chloride [facility] ([facility]) Note: Responsible Observer: Chloride Chl oride 400.1250 (G) Glucose [Mass/volume] in Serum or Plasma 100 MilliGramsPerDeciLiter_[Mass_Concentration_Units] Normal Glucose [facility] ([facility]) Note: Responsible Observer: Glucose Gluc ose 400.1500 (G) Protein [Mass/volume] in Serum or Plasma 7.1 GramsPerDeciLiter_[Mass_Concentration_Units] Normal Pro t [facility] ([facility]) Note: Responsible Observer: TP Total Pro tein 400.2800 (G) Potassium [Moles/volume] in Serum or Plasma 4.1 MilliMolesPerLiter_[Substance_Concentration_Units] Normal Potassium [facility] ([facility]) Note: Responsible Observer: K Potassium 400.1210 (G) Sodium [Moles/volume] in Serum or Plasma 141 MilliMolesPerLiter_[Substance_Concentration_Units] Normal Sodium [facility] ([facility]) Note: Responsible Observer: Sodium Sodiu m 400.1100 (G) Urea nitrogen [Mass/volume] in Serum or Plasma 15 MilliGramsPerDeciLiter_[Mass_Concentration_Units] Normal BUN [facility] ([facility]) Note: Responsible Observer: BUN Blood Ur ea Nitrogen 400.1000 (G) Aspartate aminotransferase [Enzymatic ac tivity/volume] in Serum or Plasma by With P-5'-P 25 enzyme_unit_per_liter Normal AST SerP w P-5' -[facility] ([facility]) Note: Responsible Observer: SGOT / AST S GOT / AST 400.1900 (G) Albumin [Mass/volume] in Serum or Plasma by Bromocresol purple (BCP) dye binding method 3.7 GramsPerDeciLiter_[Mass_Concentration_Units] Normal [facility] ([facility]) Note: Responsible Observer: Albumin [place] min 400.2700 (G) Alkaline phosphatase [Enzymatic activity/volume] in Se rum or Plasma 77 enzyme_unit_per_liter Normal ALP [facility] ( [facility]) Note: Responsible Observer: ALP Alkaline Phosphatase 400.2000 (G) Anion gap in Serum or Plasma 9 MilliMolesPerLiter_[Substance_Concentration_Units] Normal [facility] [place] ([facility]) Note: Responsible Observer: ANION GAP AN ION GAP 400.1402 (E) Creatinine [Moles/volume] in Vitreous fluid 0.7 MilliGramsPerDeciLiter_[Mass_Concentration_Units] Normal Creatinine [place] ([facility]) Note: Responsible Observer: Creatinine C reatinine 400.1600 (G) Glomerular filtration rate/1.73 sq M.pre dicted [Volume Rate/Area] in Serum or Plasma Greater Than 60 GFR/BSA.pred SerPlBld-ArV Rat [place] ([facility]) Note: Responsible Observer: GFR Glomerul ar Filt Rate Calc 400.1605 (D) ID Date Data Source [id number] 08/02/2021 07:09:00 AM EDT [place] ([facility]) Name Value Range Interpretation Code Description Data Karla rce(s) Supporting Document(s) Reported Physicians See Note Reported Physici ans [place] ([facility]) Note: Reported Physicians:Ordering: Drew SarahAttending: Drew Sarah ID Date Data Source [id number] 08/02/2021 07:09:00 AM EDT [place] ([facility]) Name Value Range Interpretation Code Description Data Karla rce(s) Supporting Document(s) Cholesterol [Moles/volume] in Pericardial fluid 241 MilliGramsPerDeciLiter_[Mass_Concentration_Units] Above high normal Cholesterol [place] ([facility]) Note: Responsible Observer: Cholesterol Cholesterol 400.3100 (G) HDL Cholesterol 45 MilliGramsPerDeciLiter_[Mass_Concentration_Units ] HDL Cholesterol [place] ([facility]) Note: HDL Less than 40 mg/dL: Major ris k for CHDHDL Greater than 59 mg/dL: Low risk for CHDResponsible Observer: HDL HDL Cholesterol 400.3150 (H) LDL Cholesterol, Calc 134 MilliGramsPerDeciLiter_[Mass_Concentra tion_Units] Above high normal LDL Cholesterol, Calc [place] ([facility]) Note: Responsible Observer: LDL CHOL VICKY C LDL Cholesterol, Calculated 400.3155 (F) Triglycerides 312 MilliGramsPerDeciLiter_[Mass_Concentration_U nits] Above high normal Triglycerides [place] ([facility]) Note: Responsible Observer: Triglyceride s Triglycerides 400.2951 (G) ID Date Data Source [id number] 06/07/2021 08:24:00 AM EDT [place] ([facility]) Name Value Range Interpretation Code Description Data Karla rce(s) Supporting Document(s) Laboratory test finding (navigational concept) Laboratory test result [facility] ([facility]) No further treatment Laboratory test finding (navigational concept) Laboratory test result [facility] ([facility]) No further treatment ID Date Data Source [id number] 01/05/2021 08:12:00 AM EST [facility] ([facility]) Name Value Range Interpretation Code Description Data Karla rce(s) Supporting Document(s) Laboratory test finding (navigational concept) Laboratory test result [facility] ([facility]) ICD9 Code: L90.5 Protocol: excison Clinical Text: SPITZ NEVUS PREV BX# [id number] Final Diagnosis: SCAR, COMPATIBLE WITH PRIOR SURGERY TO THE AREA; NO RESIDUAL ATYPICAL MELANOCYTIC PROLIFERATION SEEN. Gross Text: Grossly, the specimen was fusiform in shape, measuring 18 x 12 mm. on the surface and 5 mm. deep. The sections were taken along the short axis at 6 levels after the undersurface was marked with a tissue stain. All of the tissue was submitted for processing. Microscopic Description: Skin with focal effacement of the rete ridges and horizontally arrayed fibrosis in the dermis. CPT: 33701*1 Laboratory test finding (navigational concept) Laboratory test result [facility] ([facility]) ID Date Data Source [id number] 11/15/2020 12:00:00 AM EST [facility] Dana Mcmillan Rnnp Patient Name:ANA CRISTINA ESPINOZA [address] [facility] Date of : 1965[place] [address] Date of Exam: 11/15/2020PH#: Fax: [phone] EXAM: MAMMO SCREENING WITH CADCLINICAL INFORMATION: Screening.Based on the personal and family history information your patient suppliedat the time of imaging, her lifetime risk of breast cancer estimated by theTyrer-Cuzick model is 4.4%. Given that this patient has less than 20% TCrisk score, no further medical management is currently recommended at thistime.Digital screening (2D) mammography was performed bilaterally in the CC andMLO projections. Additionally, breast tomosynthesis (3D mammography) wasperformed bilaterally in the CC and MLO projections. Today's exam wascompared to the prior exam(s).By history, the patient has no complaints of a palpable breast abnormalityor other significant breast complaints.The patient states last clinical breast exam was in October of 2020.The breasts are unchanged in size and shape. Once again, denseheterogeneous fibroglandular elements are seen bilaterally in a stableappearing pattern but to such a degree that the sensitivity of themammogram in detecting cancer is decreased. There are no hamida-soft tissuedensities or spiculated masses. There is no internal architecturaldistortion. There are no suspicious hamida-calcific clusters. Skinthickening or nipple retraction is not present. Stable benigncalcifications are again seen bilaterally.The Volpara volumetric breast density category is C, the breasts areheterogeneously dense which may obscure small masses.IMPRESSION:BI-RADS Category 2 - Benign Finding(s). Stable mammogram. There is noevidence of malignant alteration of the breasts. Followup examinationrecommended in one year.This mammogram was read with the assistance of Adelia Pike Stypi, an FDAapproved computer aided detection system for mammography.Negative x-ray reports should not delay surgical consultation if a dominantor clinically suspicious mass is present.Not all breast cancers can be identified by mammography. Therefore, werecommend that you continue to perform regular breast self-examination andphysical examination and then promptly contact your physician of anyconcerns or changes.Adenosis and dense breasts may obscure an underlying neoplasm.SATISH Oliva/jmcThank you for referring ANA CRISTINA ESPINOZA to our office. Electronically Signed - BOSSMAN MICHAEL DO 11/20/20 16:41 Name Value Range Interpretation Code Description Data Karla rce(s) Supporting Document(s) ID Date Data Source [id number] 08/18/2020 10:05:[address] [facility] Name Value Range Interpretation Code Description Data Karla rce(s) Supporting Document(s) Urea nitrogen [Mass/volume] in Serum or Plasma 14 mg/dL 9-[address] [facility] Sodium [Moles/volume] in Serum or Plasma 142 mmol/L 132-[address] [facility] Potassium [Moles/volume] in Serum or Plasma 4.4 mmol/L 3.5-5.[address] [facility] Chloride [Moles/volume] in Serum or Plasma 108 mmol/L 99-109 [facility] Carbon dioxide, total [Moles/volume] in Serum or Plasma 29 mmol/L 20 -[address] [facility] Anion gap in Serum or Plasma 9 mmol/L 8-16 N [facility] Glucose [Mass/volume] in Serum or Plasma 97 mg/dL 74-[address] [facility] Creatinine 0.8 mg/dL 0.5-1.1 [facility] Glomerular filtration rate/1.73 sq M.pre dicted [Volume Rate/Area] in Serum or Plasma Greater Than [address] [facility] Alanine aminotransferase [Enzymatic acti vity/volume] in Serum or Plasma by With P-5'-P 105 U/L 10-49 Above high normal [facility] Aspartate aminotransferase [Enzymatic ac tivity/volume] in Serum or Plasma by With P-5'-P 39 U/L 0-33 Above high normal [facility] Alkaline phosphatase [Enzymatic activity/volume] in Serum or Plasma 73 U/L 45-[address] [facility] Calcium [Mass/volume] in Serum or Plasma 9.9 mg/dL 8.5-10.1 [facility] Bilirubin.total [Mass/volume] in Serum or Plasma 1.0 mg/dL 0.3-1.2 [facility] Albumin [Mass/volume] in Serum or Plasma by Bromocresol purple (BCP) dye binding method 4.0 g/dL 3.2-4.[address] [facility] ital Protein [Mass/volume] in Serum or Plasma 7.4 g/dL 5.7-8.[address] [facility] ID Date Data Source [id number] 08/18/2020 10:05:[address] [facility] Name Value Range Interpretation Code Description Data Karla rce(s) Supporting Document(s) Triglycerides 134 mg/dL 0-150 N [facility] Cholesterol 243 mg/dL 120-200 Above high normal [facility] HDL Cholesterol 55 mg/dL [facility] HDL Less than 40 mg/dL: Major risk for CHDHDL Greater than 59 mg/dL: Low risk for CHD LDL Cholesterol, Calc 162 mg/dL 0-[address] [facility] ID Date Data Source [id number] 08/18/2020 07:09:00 AM EDT [place] ([facility]) Name Value Range Interpretation Code Description Data Karla rce(s) Supporting Document(s) Reported Physicians See Note Reported Physici ans [place] ([facility]) Note: Reported Physicians:Ordering: Drew SarahAttending: Drew Sarah ID Date Data Source [id number] 08/18/2020 07:09:00 AM EDT [place] ([facility]) Name Value Range Interpretation Code Description Data Karla rce(s) Supporting Document(s) Cholesterol [Moles/volume] in Pericardial fluid 243 MilliGramsPerDeciLiter_[Mass_Concentration_Units] Above high normal Cholesterol [place] ([facility]) Note: Responsible Observer: Cholesterol Cholesterol 400.3100 (G) HDL Cholesterol 55 MilliGramsPerDeciLiter_[Mass_Concentration_Units ] HDL Cholesterol [place] ([facility]) Note: HDL Less than 40 mg/dL: Major ris k for CHDHDL Greater than 59 mg/dL: Low risk for CHDResponsible Observer: HDL HDL Cholesterol 400.3150 (H) Triglycerides 134 MilliGramsPerDeciLiter_[Mass_Concentration_Units] Normal Triglycerides [place] ([facility]) Note: Responsible Observer: Triglyceride s Triglycerides 400.2951 (G) LDL Cholesterol, Calc 162 MilliGramsPerDeciLiter_[Mass_Concentra tion_Units] Above high normal LDL Cholesterol, Calc [place] ([facility]) Note: Responsible Observer: LDL CHOL VICKY C LDL Cholesterol, Calculated 400.3155 (F) ID Date Data Source [id number] 08/18/2020 07:09:00 AM [facility] ([facility]) Name Value Range Interpretation Code Description Data Karla rce(s) Supporting Document(s) Reported Physicians See Note Reported Physici ans [place] ([facility]) Note: Reported Physicians:Ordering: Drew SarahAttending: Drew Sarah ID Date Data Source [id number] 08/18/2020 07:09:00 AM [facility] ([facility]) Name Value Range Interpretation Code Description Data Karla rce(s) Supporting Document(s) Alanine aminotransferase [Enzymatic acti vity/volume] in Serum or Plasma by With P-5'-P 105 enzyme_unit_per_liter Above high normal ALT SerPl w P-5'-P-cCnc [place] ([facility]) Note: Responsible Observer: SGPT/ALT SGP T/ALT 400.1750 (G) Calcium [Mass/volume] in Serum or Plasma 9.9 MilliGramsPerDeciLiter_[Mass_Concentration_Units] Normal Calcium [facility] ([facility]) Note: Responsible Observer: Calcium Calc ium 400.2500 (G) Bilirubin.total [Mass/volume] in Serum or Plasma 1.0 MilliGramsPerDeciLiter_[Mass_Concentration_Units] Normal Bilirub [facility] ([facility]) Note: Responsible Observer: T GREGORIO Total Bilirubin 400.2600 (G) Chloride [Moles/volume] in Serum or Plasma 108 MilliMolesPerLiter_[Substance_Concentration_Units] Normal Chloride [facility] ([facility]) Note: Responsible Observer: Chloride Chl oride 400.1250 (G) Carbon dioxide, total [Moles/volume] in Serum or Plasm a 29 MilliMolesPerLiter_[Substance_Concentration_Units] Normal CO2 [facility] ([facility]) Note: Responsible Observer: CO2 Carbon D ioxide 400.1400 (G) Sodium [Moles/volume] in Serum or Plasma 142 MilliMolesPerLiter_[Substance_Concentration_Units] Normal Sodium [facility] ([facility]) Note: Responsible Observer: Sodium Sodiu m 400.1100 (G) Protein [Mass/volume] in Serum or Plasma 7.4 GramsPerDeciLiter_[Mass_Concentration_Units] Normal Pro t [facility] ([facility]) Note: Responsible Observer: TP Total Pro tein 400.2800 (G) Glucose [Mass/volume] in Serum or Plasma 97 MilliGramsPerDeciLiter_[Mass_Concentration_Units] Normal Glucose [facility] ([facility]) Note: Responsible Observer: Glucose Gluc ose 400.1500 (G) Potassium [Moles/volume] in Serum or Plasma 4.4 MilliMolesPerLiter_[Substance_Concentration_Units] Normal Potassium [facility] ([facility]) Note: Responsible Observer: K Potassium 400.1210 (G) Anion gap in Serum or Plasma 9 MilliMolesPerLiter_[Substance_Concentration_Units] Normal Anion Gap [facility] ([facility]) Note: Responsible Observer: ANION GAP AN ION GAP 400.1402 (E) Albumin [Mass/volume] in Serum or Plasma by Bromocresol purple (BCP) dye binding method 4.0 GramsPerDeciLiter_[Mass_Concentration_Units] Normal Albumin [facility] ([facility]) Note: Responsible Observer: Albumin [place] min 400.2700 (G) Aspartate aminotransferase [Enzymatic ac tivity/volume] in Serum or Plasma by With P-5'-P 39 enzyme_unit_per_liter Above high normal AST S erPl w P-5'-P-[facility] ([facility]) Note: Responsible Observer: SGOT / AST S GOT / AST 400.1900 (G) Urea nitrogen [Mass/volume] in Serum or Plasma 14 MilliGramsPerDeciLiter_[Mass_Concentration_Units] Normal BUN [facility] ([facility]) Note: Responsible Observer: BUN Blood Ur ea Nitrogen 400.1000 (G) Glomerular filtration rate/1.73 sq M.pre dicted [Volume Rate/Area] in Serum or Plasma Greater Than 60 [facility] [place] [facility] Note: Responsible Observer: GFR Glomerul ar Filt Rate Calc 400.1605 (D) Alkaline phosphatase [Enzymatic activity/volume] in Se rum or Plasma 73 enzyme_unit_per_liter Normal ALP SerPl-cCnc [place] ( [facility]) Note: Responsible Observer: ALP Alkaline Phosphatase 400.2000 (G) Creatinine [Moles/volume] in Vitreous fluid 0.8 MilliGramsPerDeciLiter_[Mass_Concentration_Units] Normal Creatinine [place] ([facility]) Note: Responsible Observer: Creatinine C reatinine 400.1600 (G) Procedure Social History Code Duration Value Status Description Data Source(s ) Smoking 07/05/2021 01:19:17 PM EDT Never smoked tobacco (findi ng) completed Never smoked tobacco (finding) [place] ([facility] Ling [facility]) Smoking 02/06/2021 10:50:06 AM EDT Never smoked tobacco (findi ng) completed Never smoked tobacco (finding) [place] ([facility]) Smoking 11/06/2020 12:00:00 AM EST Never Smoker completed Never S moker eCW1 ([facility]) Smoking 08/01/2020 03:27:33 PM EDT Never smoked tobacco (findi ng) completed Never smoked tobacco (finding) [place] ([facility]onzalo Ling MD [facility]) Vital Signs ID Date Data Source UNK Name Value Range Interpretation Code Description Data Source(s) Body height 61.75 [in_i] 61.75 [in_i] [place] ([facility]) Systolic blood pressure 122 mm[Hg] 122 mm[Hg] [facility] Body surface area Derived from formula 1.73 m2 1.73 m2 [place] ([facility]) Body weight 160 [lb_av] 160 [lb_av] [place] ([facility]) Body mass index (BMI) [Ratio] 29.5 kg/m2 29.5 k g/m2 [facility]) Diastolic blood pressure 80 mm[Hg] 80 mm[Hg] [place] ([facility]) Heart rate 78 /min 78 /min [place] ([facility]) Respiratory rate 18 /min 18 /min [place] ([facility]) Body weight 160.00 [lb_av] 160.00 [lb_av] [facility] [facility] ([facility]) Respiratory rate 18 /min 18 /min [facility] ( [facility]) Systolic blood pressure 130 mm[Hg] 130 mm[Hg] M [facility] ([facility]) Diastolic blood pressure 84 mm[Hg] 84 mm[Hg] [facility] ([facility]) Body temperature 97.5 [degF] 97.5 [degF] [facility] ([facility]) Body weight 160 [lb_av] 160 [lb_av] eCW1 ([facility]) Body weight 72.57 kg 72.57 kg W1 ([facility]) Body height 61.5 [in_i] 61.5 [in_i] W1 ([facility]) Body mass index (BMI) [Ratio] 29.74 kg/m2 29.74 kg/m2 [facility] ([facility]) Systolic blood pressure 119 mm[Hg] 119 mm[Hg] e CW1 ([facility]) Diastolic blood pressure 86 mm[Hg] 86 mm[Hg] eCW1 ([facility]) Patient Treatment Plan of Care Planned Activity Planned Date Details Description Data Source (s) ezetimibe 10 MG Oral Tablet 08/23/2021 12:00:00 AM [facility]) ezetimibe 10 MG Oral Tablet 02/23/2021 12:00:00 AM [facility] ([facility]) bimatoprost 0.1 MG/ML Ophthalmic Solution [Lumigan] 01/31/20 12:00:[address] [facility] (Gonzalo Ling MD [facility]) latanoprost 0.05 MG/ML Ophthalmic Solution 01/30/2021 12:00:00 AM [facility] (Gonzalo Ling MD [facility]) valacyclovir 1000 MG Oral Tablet [Valtrex] 07/24/2020 12:00:00 AM E [facility] ([facility]) ezetimibe 10 MG Oral Tablet [Zetia] 07/24/2020 12:00:00 AM [facility] ([facility]) bimatoprost 0.1 MG/ML Ophthalmic Solution [Lumigan] 01/17/20 12:00:[address] [facility] (Gonzalo Ling MD [facility])
--- OUTSIDE RECORDS SUMMARY | 2021-09-24 10:42 | CCD | Continuity of Care Document ---
Author Author Kathy MURPHY COTTON CLASSER-C Organization Unknown Address [address], [address] [place] [address] Phone [phone] Care Team Providers Care Emts Name Role Phone Emerita Miguel [facility] [phone] Problems Description No Information Available Social History Type Date Description Comments Sex Unknown ETOH Use Social Drinker Tobacco Use Start: Unknown Patient has never smoked Sun Exposure moderate amount of sun exposure Sun Exposure Tanning bed - Has used in past. No longer using. Sun Exposure Uses 15-30 SPF Sun Exposure Has never experienced blistering from sunburns Allergies, Adverse Reactions, Alerts Description No Known Drug Allergies Medications Active Medications SIG Qnty Indications Ordering Provide r Date Fluticasone Propionate 0.05% Cream apply to R index finger sparingly twice a day x 2 weeks if needed, then prn for flares 15gm L20.89 TANNA Nance 021 Tretinoin 0.025% Cream apply pea size amount topically to face nightly 45gm L71.8 TANNA Spencer 06/05/2020 Vitamin D3 Unknown Lysine Unknown Probiotic Unknown Ezetimibe Unknown Immunizations Description No Information Available Vital Signs Date Vital Result Comment 06/07/2021 7:55am BP Systolic 130 mmHg BP Diastolic 84 mmHg Weight 160.00 lb Respiratory Rate 18 /min 01/05/2021 7:49am Body Temperature 97.5 F Results Test Acquired Date Facility Test Result H/L Range Note BXDX Pathology 06/07/2021 [facility] Icd9 Code ICD9 Code: D22.5 1, 2 [facility]ort SEE IMAGE 1 No further treatment 2 ICD9 Code: D22.5 Protocol: shave Clinical Text: ATYPICAL NEVUS Final Diagnosis: COMPOUND NEVUS. Gross Text: The specimen grossly was irregular in shape and measured 4 x 2 mm. on the surface and 1 mm. deep. All of the tissue was submitted for processing. Microscopic Description: There are nests of melanocytes in the cutis with theques at the dermoepidermal junction. CPT: 19765*1 Procedures Date Code Description Status 06/07/2021 61497 Office/Outpatient Established Mo d MDM 30-39 Min Completed 06/07/2021 02336 Shave Biopsy Of Skin, Single Les ion Completed Medical Devices Description No Information Available Encounters Type Date Location Provider Dx Diagnosis Office Visit 06/07/2021 8:00a Main Office TANNA Nance D 22.5 Melanocytic nevi of trunk D22.61 Melanocytic nevi of right up per limb, including shoulder D22.71 Melanocytic nevi of right lo wer limb, including hip D22.72 Melanocytic nevi of left low er limb, including hip L82.1 Other seborrheic keratosis L73.8 Other specified follicular d isorders L81.4 Other melanin hyperpigmentat ion L71.8 Other rosacea L72.3 Sebaceous cyst D23.72 Oth benign neoplasm skin/ le ft lower limb, including hip D48.5 Neoplasm of uncertain behavi or of skin L20.89 Other atopic dermatitis R20.8 Other disturbances of skin s ensation Z12.83 Encounter for screening for malignant neoplasm of skin Assessments Date Code Description Provider 06/07/2021 D22.5 Melanocytic nevi of trunk Mely Stockton, F.NIvanPIvan 06/07/2021 D22.5 Melanocytic nevi of trunk TANNA Nance 06/07/2021 D22.61 Melanocytic nevi of right upper limb, including shoulder TANNA Nance 06/07/2021 D22.71 Melanocytic nevi of right lower limb, including hip TANNA Nance 06/07/2021 D22.72 Melanocytic nevi of left lower l imb, including hip TANNA Nance 06/07/2021 L82.1 Other seborrheic keratosis Stephanie mckee DEYANIRA Garcia-C 06/07/2021 L73.8 Other specified follicular disor ders Nikki Mackey DEYANIRA Murphy-C 06/07/2021 L81.4 Other melanin hyperpigmentation Nikki Mackey DEYANIRA Murphy-C 06/07/2021 L71.8 Other rosacea Amalia robb, F.N.P. 06/07/2021 L71.8 Other rosacea Nikki Narendra mackey, DEYANIRA-C 06/07/2021 L72.3 Sebaceous cyst Amalia robb, F.N.P. 06/07/2021 L72.3 Sebaceous cyst Nikki Narendra mackey, DEYANIRA-C 06/07/2021 D23.72 Other benign neoplas m of skin of left lower limb, including hip DEYANIRA Nance-Cornelius 06/07/2021 D48.5 Neoplasm of uncertain behavior o f skin Amalia Stockton, F.N.P. 06/07/2021 D48.5 Neoplasm of uncertain behavior o f skin DEYANIRA Nance-C 06/07/2021 L20.89 Other atopic dermatitis Uli Stockton, F.N.P. 06/07/2021 L20.89 Other atopic dermatitis DEYANIRA Nance-Cornelius 06/07/2021 R20.8 Other disturbances of skin sensa tion TANNA Nance 06/07/2021 Z12.83 Encounter for screening for elayne gnant neoplasm of skin TANNA Nance Plan of Treatment Future Appointment(s):* 06/11/2022 8:00 am - TANNA Nance at Main Office 06/07/2021 - TANNA Nance* D22.5 Melanocytic nevi of trunk* Comments:* Nevi on trunk appear healthy. Monitor for changes.CA - Reassurance. Sun protection and sunscreen use discussed. Literature given on monthly self-skin evaluations Should any moles change in shape or color, itch, bleed or burn, pt. will contact office for evaluation sooner than their interval appointment. * D22.61 Melanocytic nevi of right upper limb, including shoulder* Comments:* Nevus on R arm appear healthy. Monitor for changes. * D22.71 Melanocytic nevi of right lower limb, including hip* Comments:* Nevi located on R leg appear healthy. Monitor for changes. * D22.72 Melanocytic nevi of left lower limb, including hip* Comments:* Nevi L leg appear healthy. Monitor for changes. * L82.1 Other seborrheic keratosis* Comments:* Reassurance. * L73.8 Other specified follicular disorders* Comments:* Reassurance. * L81.4 Other melanin hyperpigmentation* Comments:* Sunscreen use and sun protection discussed. * L71.8 Other rosacea* Comments:* Stable.Continue Tretinoin 0.025% daily at bedtime.Call with problems. * L72.3 Sebaceous cyst* Comments:* Continue Tretinoin 0.025% cream at bedtime.Reassurance. * D23.72 Other benign neoplasm of skin of left lower limb, including hip* Comments:* DF - Reassurance. * D48.5 Neoplasm of uncertain behavior of skin* Comments:* Shave biopsy today, R upper back - atypical nevusWound care instructions given. Will call with pathology when available. Continue to monitor for any recurrence. * L20.89 Other atopic dermatitis* New Medication:* Fluticasone Propionate 0.05 % - apply to R index finger sparingly twice a day x 2 weeks if needed, then prn for flares * Comments:* Discussed mild cleansers such as Dove or Cetaphil. Needs to moisturizer daily. Start Fluticasone Propionate 0.005% cream BID x 14 days then PRN with flare.Discussed how to safely use topical steroids.Discussed not to overuse.Knows not to exceed TIW after the 14 days.If she finds she is using topical more often to stay comfortable she will call to be sooner in the office. Call with problems. * R20.8 Other disturbances of skin sensation* Comments:* See above. * Z12.83 Encounter for screening for malignant neoplasm of skin* Comments:* See above * Follow up:* 6 months/PRN - [facility] Functional Status Description No Information Available Mental Status Description No Information Available Referrals Description No Information Available
--- OUTSIDE RECORDS SUMMARY | 2021-09-24 10:42 | CCD ---
Author Author Gonzalo Aguilar MD [facility] Organization Gonzalo Aguilar MD [facility] Address [address] [address] Phone Care Team Providers Care Orthodontic Treatment Coordinator Name Role Phone Emerita Schmidt PP [phone] Ramírez Scott DO Unavailable [phone] Reason for Referral No Reason for Referral Recorded Problems Includes: Active, inactive, and resolved Problems All Visits Onset Date - Time Resolved Date - Time Provider Co ndition Status Dermatochalasis Left Lower Eyelid 03/06/2020 - 12:00AM Gonzalo Aguilar MD, FACS Active Dermatochalasis Right Upper Eyelid 03/06/2020 - 12:00AM Gonzalo Aguilar MD, FACS Active Dermatochalasis Right Lower Eyelid 03/06/2020 - 12:00AM Gonzalo Aguilar MD, FACS Active Dermatochalasis Left Upper Eyelid 03/06/2020 - 12:00AM Gonzalo Aguilar MD, FACS Active Borderline Glaucoma Ocular Hypertension 01/17/2020 - 12:00AM Gonzalo Ling MD, FACS Active Conjunctivitis Acute Atopic 05/08/2018 - 12:00AM Unknown - Unkno wn Gonzalo Aguilar MD, FACS Resolved Conjunctivitis Chronic Allergic 05/08/2018 - 12:00AM Gonzalo Aguilar MD, FACS Active Blepharitis Squamous 05/08/2018 - 12:00AM Gonzalo Vásquez MD, FACS Inactive Squamous blepharitis left upper eyelid 05/08/2018 - 12:00AM Gonzalo Ling MD, FACS Inactive Squamous blepharitis left lower eyelid 05/08/2018 - 12:00AM Gonzalo Ling MD, FACS Inactive Squamous blepharitis right lower eyelid 05/08/2018 - 12:00AM Gonzalo Ling MD, [place] Inactive Dry Eye Syndrome Both Eyes 05/08/2018 - 12:00AM Gonzalo Aguilar MD, FACS Active Vitreous Disorders Degeneration 05/08/2018 - 12:00AM Gonzalo Aguilar MD, FACS Active Plan of Treatment Pending Tests Order Diagnosis Results Due Ordering Provi jeannie Testing Ordered - Visual Field Visual Field 24-2 Ocular hyperten montserrat, bilateral 07/29/21 Gonzalo Aguilar MD, [place] Future Appointments Date Time Location Provider 6 Month Follow-Up 12/12/2021 7:50AM Gonzalo Scott DO Assessments Includes: Assessments for all patient encounters Findings Encounter Date Borderline glaucoma ocular hypertension IOP CHECK WITH OCT DISC with Ramírez Scott DO 06/11/2021 Borderline glaucoma ocular hypertension IOP CHECK with Gonzalo Aguilar MD, [facility] 01/30/2021 Borderline glaucoma ocular hypertension IOP CHECK with Gonzalo Aguilar MD, [facility] 08/01/2020 Borderline glaucoma ocular hypertension VISUAL FIELD 2 4-2 with Gonzalo Ling MD, [facility] 01/31/2020 Borderline glaucoma ocular hypertension 1 Year Follow- Up with Gonzalo Ling MD, [facility] 01/17/2020 Chronic allergic conjunctivitis 1 Year Follow-Up with Gonzalo Aguilar MD, [facility] 01/17/2020 Dry eye syndrome 1 Year Follow-Up with Gonzalo sun MD, [facility] 01/17/2020 Chronic allergic conjunctivitis 8 Month Follow-Up with Gonzalo Aguilar MD, [facility] 01/14/2019 Dry eye syndrome of both eyes 8 Month Follow-Up with Narendra Aguilar MD, [facility] 01/14/2019 Acute atopic conjunctivitis NEW PATIENT WITH REFERRAL with Gonzalo Aguilar MD, [facility] 05/08/2018 Chronic allergic conjunctivitis NEW PATIENT WITH REFER RAL with Gonzalo Ling MD, [facility] 05/08/2018 Dermatochalasis of right upper eyelid , right lower eyelid, left upper eyelid, and left lower eyelid NEW PATIENT WITH REFERRAL with Gonzalo Aguilar MD, [facility] 05/08/2018 Dry eye syndrome of both eyes NEW PATIENT WITH REFERRA L with Gonzalo Aguilar MD, [facility] 05/08/2018 Squamous blepharitis right upper eyelid , right lower eyelid, left upper eyelid, and left lower eyelid NEW PATIENT WITH REFERRAL with Gonzalo Aguilar MD, [place] 05/08/2018 Vitreous degeneration NEW PATIENT WITH REFERRAL wi Gonzalo Aguilar MD, [place] 05/08/2018 Instructions Instructions not supported for this document typeNo Instructions Recorded Medical Equipment - Implanted Devices Includes: Current and historical DevicesNo Medical Equipment Recorded Medications Includes: Current and historical Medications Current Medications (continue as prescribed) Latanoprost 0.005% Ophthalmic Solution 01/30/2021 P rovider: Gonzalo Aguilar MD, FACS Diagnosis: Ocular hypertension, bilateral One drop in each eye at night time. Zetia 10 MG Oral Tablet 08/01/2020 Provider: Diagnosis: One-A-Day Womens 50+ Advantage Oral Tablet 05/08/2018 Provider: Diagnosis: Biotin 5MG Oral Tablet 05/08/2018 Provider: Diagnosis: [facility] Vitamin D3 1000UNIT Oral Tablet Chewable 05/08/2018 Provider: Diagnosis: [place] 3-6-9 Oral Capsule 05/08/2018 Provider: Diagnosis: Past Medications on file Lumigan 0.01% Ophthalmic Solution 01/30/2021 - 01/30/2021 Pr ovider: Gonzalo Aguilar MD, FACS Diagnosis: Ocular hypertension, bilateral One drop in each eye at night time. Lumigan 0.01% Ophthalmic Solution 01/17/2020 - 01/30/2021 Pr ovider: Gonzalo Aguilar MD, FACS Diagnosis: Ocular hypertension, bilateral One drop in each eye at night time. [place] Choice Glucose Control High In Vitro Liquid 8 - 08/01/2020 Provider: Diagnosis: Medications Administered Includes: Administered Medications in patient's chartNo Administered Medications Recorded Vital Signs Includes: Vital Signs from 07/05/2020 through 07/05/2021No Vital Signs Recorded For Specified Dates Results Includes: Results from 07/05/2020 through 07/05/2021No Results Recorded For Specified Dates History of Present Illness History of Present Illness not supported for this document typeNo History of Present Illness Recorded Social History Description Last Updated No tobacco use 06/11/2021 Not using alcohol 06/11/2021 Not using drugs 06/11/2021 Smoking status : Never smoker 06/11/2021 Tobacco non-user 01/30/2021 Alcohol 01/14/2019 Procedures and Surgical History Includes: Procedures from 07/05/2020 through 07/05/2021 Procedures Code Diagnosis Performing Provider Service Location Service Date Intermediate Eye Exam Established Patient 36819 Ocular hypertension, bilateral Gonzalo Aguilar MD, [place] Aguilar MD [facility] 01/30/2021 Intermediate Eye Exam Established Patient 66942 Ocular hypertension, bilateral Gonzalo Aguilar MD, [place] Aguilar MD [facility] 08/01/2020 Surgical History Last Updated Surgical / procedural history Two C-sec tions 1981 and 1985, Two Bunionectomies 1989 and 1994, Hysterectomy 201001/14/2019 Medical History Includes: Medical History in patient's chart Description Last Updated Reported medical history 03/06/2020 No recent change in medical history 01/14/2019 Currently wearing eyeglasses 01/14/2019 Family History Includes: Family History in patient's chart Description Last Updated Maternal history of arthritis 06/11/2021 Maternal history of glaucoma 06/11/2021 Maternal history of macular degeneration 06/11/2021 Maternal history of thyroid disorder 06/11/2021 Paternal history of hypertension 06/11/2021 Son's history of family history of cancer 06/11/2021 Family medical history was unknown 05/08/2018 Review of Systems Review of Systems not supported for this document typeNo Review of Systems Recorded Mental Status Mental Status not supported for this document type Description Oriented to time, place, and person Functional Status Functional Status not supported for this document typeNo Functional Status Recorded Physical Exam Physical Exam not supported for this document typeNo Physical Exam Recorded Immunizations Includes: Immunizations in patient's chartNo Immunizations Recorded Allergies Includes: Active, inactive, and resolved AllergiesNo Known Allergies Encounters Includes: Encounters from 07/05/2020 through 07/05/2021 Encounter Provider Location Date Check-In Time Check-Out Time D iagnosis IOP CHECK WITH OCT DISC Ramírez Shay MD [facility] 06/11/2021 2:36PM 3:14PM Borderline Glaucoma Ocular Hypertension IOP CHECK Gonzalo Aguilar MD, [place] Aguilar MD [facility] 01/30/2021 1:59PM 2:22PM Borderline Glaucoma Ocular H ypertension IOP CHECK Gonzalo Aguilar MD, [place] Aguilar MD [facility] 08/01/2020 2:54PM 3:28PM Borderline Glaucoma Ocular H ypertension Insurance Includes: Active Insurance Policies Plan Name Member ID Group # Subscriber Relationship Effective Da seema 1 - [facility] [employer] ([place]) - [facility] [id number] [employer] Advance Directives Includes: Current Advance DirectivesNo Advance Directives Recorded Health Concerns Includes: Active Health ConcernsNo Active Health Concerns Recorded Goals Includes: Active GoalsNo Active Goals Recorded Interventions Includes: Interventions for active GoalsNo Interventions Recorded Evaluations & Outcomes Includes: Evaluations & Outcomes for active GoalsNo Outcomes Recorded
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
--- OUTSIDE RECORDS SUMMARY | 2021-09-24 10:42 | CCD ---
Author Author Gonzalo Aguilar MD [facility] Organization Gonzalo Aguilar MD [facility] Address [address] [address] Phone Care Team Providers Care Solder Deposit Operator Name Role Phone Emerita Schmidt PP [phone] Ramírez Scott DO Unavailable [phone] Reason for Referral No Reason for Referral [...] hypertension IOP CHECK with Gonzalo Aguilar MD, [facility] 01/30/2021 Borderline glaucoma ocular hypertension IOP CHECK with Gonzalo Aguilar MD, [facility] 08/01/2020 Borderline glaucoma ocular hypertension VISUAL FIELD 2 4-2 with Gonzalo Ling MD, [facility] 01/31/2020 Borderline glaucoma ocular hypertension 1 Year Follow- Up with Gonzalo Ling MD, [facility] 01/17/2020 Chronic allergic conjunctivitis 1 Year Follow-Up with Gonzalo Aguilar MD, [facility] 01/17/2020 Dry eye syndrome 1 Year Follow-Up with Gonzalo sun MD, [facility] 01/17/2020 Chronic allergic conjunctivitis 8 Month Follow-Up with Gonzalo Aguilar MD, [facility] 01/14/2019 Dry eye syndrome of both eyes 8 Month Follow-Up with Narendra Aguilar MD, [facility] 01/14/2019 Acute atopic conjunctivitis NEW PATIENT WITH REFERRAL with Gonzalo Aguilar MD, [facility] 05/08/2018 Chronic allergic conjunctivitis NEW PATIENT WITH REFER RAL with Gonzalo Ling MD, [facility] 05/08/2018 Dermatochalasis of right upper eyelid , right lower eyelid, left upper eyelid, and left lower eyelid NEW PATIENT WITH REFERRAL with Gonzalo Aguilar MD, [facility] 05/08/2018 Dry eye syndrome of both eyes NEW PATIENT WITH REFERRA L with Gonzalo Aguilar MD, [facility] 05/08/2018 Squamous blepharitis right upper eyelid , [...] 1000UNIT Oral Tablet Chewable 05/08/2018 Provider: Diagnosis: [place] 3-6-9 Oral Capsule 05/08/2018 Provider: Diagnosis: Past Medications on file Lumigan 0.01% Ophthalmic Solution 01/30/2021 - 01/30/2021 Pr ovider: Gonzalo Aguilar MD, FACS Diagnosis: Ocular hypertension, bilateral One drop in each eye at night time. Lumigan 0.01% Ophthalmic Solution 01/17/2020 - 01/30/2021 Pr ovider: Gonzalo Aguilar MD, FACS Diagnosis: Ocular hypertension, bilateral One drop in each eye at night time. [place] Choice Glucose Control High In Vitro Liquid 8 - 08/01/2020 Provider: Diagnosis: Medications Administered Includes: Administered Medications in patient's chartNo Administered Medications Recorded Vital Signs Includes: Vital Signs from 07/17/2020 through 07/17/2021No Vital Signs Recorded For Specified Dates Results Includes: Results from 07/17/2020 through 07/17/2021No Results Recorded For Specified Dates History of Present Illness History of Present Illness not supported for this document typeNo History of Present Illness Recorded Social History Description Last Updated No tobacco use 06/11/2021 Not using alcohol 06/11/2021 Not using drugs 06/11/2021 Smoking status : Never smoker 06/11/2021 Tobacco non-user 01/30/2021 Alcohol 01/14/2019 Procedures and Surgical History Includes: Procedures from 07/17/2020 through 07/17/2021 Procedures Code Diagnosis Performing Provider Service Location Service Date Intermediate Eye Exam Established Patient 33865 Ocular hypertension, bilateral Gonzalo Aguilar MD, CHELSEA Aguilar MD [facility] 01/30/2021 Intermediate Eye Exam Established Patient 75959 Ocular hypertension, bilateral Gonzalo Aguilar MD, CHELSEA Aguilar MD [facility] 08/01/2020 Surgical History Last Updated Surgical / [...] AllergiesNo Known Allergies Encounters Includes: Encounters from 07/17/2020 through 07/17/2021 Encounter Provider Location Date Check-In Time Check-Out Time D iagnosis IOP CHECK WITH OCT DISC Ramírez Shay MD [facility] 06/11/2021 2:36PM 3:14PM Borderline Glaucoma Ocular Hypertension IOP CHECK Gonzalo Aguilar MD, CHELSEA Aguilar MD [facility] 01/30/2021 1:59PM 2:22PM Borderline Glaucoma Ocular H ypertension IOP CHECK Gonzalo Aguilar MD, CHELSEA Aguilar MD [facility] 08/01/2020 2:54PM 3:28PM Borderline Glaucoma Ocular H ypertension Insurance Includes: Active Insurance Policies Plan Name Member ID Group # Subscriber Relationship Effective Da seema 1 - [facility] [employer] ([employer]) - [facility] [id number] [employer]anner Advance Directives Includes: Current Advance DirectivesNo Advance Directives Recorded Health Concerns Includes: Active Health ConcernsNo Active Health Concerns Recorded Goals Includes: Active GoalsNo Active Goals Recorded Interventions Includes: Interventions for active GoalsNo Interventions Recorded Evaluations & Outcomes Includes: Evaluations & Outcomes for active GoalsNo Outcomes Recorded
[2021-09-24] MEDS ORDERED: LIDOCAINE 2% 100MG/5ML SDV (FOR ANES.) As Ordered ONE (11:34)
[2021-09-24] MEDS ORDERED: propofoL 200 MG/20 ML VIAL As Ordered ONE ×2 (11:34→11:35)
--- NOTE | 2021-09-24 11:58 | ROOR ---
Patient Name: Kathy Butler Procedure Date: 09/24/2021 11:38 AM Date of : 1965 Age: 56 Room: [facility] Gender: Female Note Status: Finalized Procedure: Total Colonoscopy to Cecum + ileoscopy + Cold Snare Polypectomy Indications: Screening in patient at increased risk: Colorectal cancer in child before age 60 Providers: Lowell Scott MD Referring MD: Emerita Miguel NP Requesting Provider: Medicines: Monitored Anesthesia Care Complications: No immediate complications. Procedure: Pre-Anesthesia Assessment: - The heart rate, respiratory rate, oxygen saturations, blood pressure, adequacy of pulmonary ventilation, and response to care were monitored throughout the procedure. The Colonoscope was introduced through the anus and advanced to the terminal ileum, with identification of the appendiceal orifice and IC valve. The colonoscopy was performed without difficulty. The patient tolerated the procedure well. The quality of the bowel preparation was good. Findings: The perianal and digital rectal examinations were normal. Non-bleeding internal hemorrhoids were found during retroflexion. The hemorrhoids were small and Grade I (internal hemorrhoids that do not prolapse). A small polyp was found at 20 cm proximal to the anus. The polyp was sessile. The polyp was removed with a cold snare. Resection and retrieval were complete. The exam was otherwise without abnormality on direct and retroflexion views. Impression: - Non-bleeding internal hemorrhoids. - One small polyp at 20 cm proximal to the anus, removed with a cold snare. Resected and retrieved. - The examination was otherwise normal on direct and retroflexion views. - The exam was otherwise normal to the cecum. Recommendation: - Patient has a contact number available for emergencies. The signs and symptoms of potential delayed complications were discussed with the patient. Return to normal activities tomorrow. Written discharge instructions were provided to the patient. - High fiber diet. - Discharge patient to home. - Continue present medications. - Await pathology results. - Telephone GI clinic for pathology results in 1 week. - Repeat colonoscopy in 5 years for surveillance based on pathology results. - Return to referring physician. - The findings and recommendations were discussed with the patient. Procedure Code(s): --- Professional --- 88077, Colonoscopy, flexible; with removal of tumor(s), polyp(s), or other lesion(s) by snare technique Diagnosis Code(s): --- Professional --- Z80.0, Family history of malignant neoplasm of digestive organs K64.0, First degree hemorrhoids K63.5, Polyp of colon CPT copyright 2019 [employer]. All rights reserved. The codes documented in this report are preliminary and upon cpc coder review may be revised to meet current compliance requirements. Lowell Scott MD Lowell Scott MD 09/24/2021 11:58:25 AM Electronically signed by Lowell Scott MD Number of Addenda: 0 Note Initiated On: 09/24/2021 11:38 AM Estimated Blood Loss: Estimated blood loss: none.
[2021-09-24 12:15] VITALS: BP 135/75
== END 2021-09-24 12:37 | disposition home or self-care (01) ==
LOC: M OPP 10:32
PROVIDERS: ATTEND Internal Medicine Gastroenterology
DX: D12.6 Benign neoplasm of colon, unspecified (principal); K64.0 First degree hemorrhoids; E78.5 Hyperlipidemia, unspecified; Z79.899 Other long term (current) drug therapy; Z80.0 Family history of malignant neoplasm of digestive organs

== ENCOUNTER 2023-10-06 10:53 | Day surgery (SDC) | payer BC, OTHER ==
[~2023-10-06] VITALS: Ht 154.9 cm; Wt 71.6 kg
[~2023-10-06 10:53] MED LIST changes: +propofoL 200 MG/20 ML VIAL As Ordered ONE
[2023-10-06] MEDS ORDERED: propofoL 200 MG/20 ML VIAL As Ordered ONE (12:29)
[2023-10-06 12:41] VITALS: TEMP 99.7
[2023-10-06 12:53] VITALS: BP 142/87; O2SAT 95
== END 2023-10-06 13:00 | disposition home or self-care (01) ==
LOC: M OPP 10:53
PROVIDERS: ATTEND Internal Medicine Gastroenterology
DX: Z12.11 Encounter for screening for malignant neoplasm of colon (principal); K63.5 Polyp of colon; K64.0 First degree hemorrhoids; Z80.0 Family history of malignant neoplasm of digestive organs; E78.00 Pure hypercholesterolemia, unspecified; Z79.899 Other long term (current) drug therapy

== ENCOUNTER → 2024-03-26 | Outpatient (REF) | payer OTHER, BC ==
[~2024-03-26] MED LIST changes: -NS 1,000 ML IV ONE; -propofoL 200 MG/20 ML VIAL As Ordered ONE
== END ==
LOC: M LAB REF 11:57
PROVIDERS: ATTEND Podiatrist Foot & Ankle Surgery
DX: L90.5 Scar conditions and fibrosis of skin (principal)